=== PATIENT | male | born 1970 | race African-American/Black ===

== ENCOUNTER 2020-08-24 06:37 | Emergency (ER) | payer OTHER ==
[~2020-08-24] VITALS: Ht 180.3 cm; Wt 174.6 kg
[~2020-08-24 06:37] MED LIST: AMOXICILLIN875 MG PO; CARISOPRODOL 3350 MG PO; DAY TIME COLD-237 ML PO; HYDROCHLOROTHIA25 M1 PO; IBUPROFEN 800800 MG PO; MEDROLDOSEPACK PO; NOHOMEMEDICATIONS; NORCO 5-325 TA1 EACH PO; ONMEL200 MG PO; PERCOCET 5-3251 EACH PO; PROMETHAZINE-C120 ML PO; VENTOLIN HFA 1818 GM INH; ZPAK PO
[2020-08-24] MEDS ORDERED: GLUCOPHAGE1000 MG PO (06:52)
[2020-08-24 07:12] LABS: ABSOLUTE NEUTROPHILS 3.3 thou/uL (1.4-8.2); EOSINOPHILS 2.6 % (0.0-3.0); HEMATOCRIT 40.3 % (42.0-52.0); HEMOGLOBIN 13.3 gm/dL (14.0-18.0); LYMPHOCYTES 25.8 % (24.0-44.0); MCH 26.4 pg (26.0-34.0); MCV 79.9 fL (80.0-100.0); MONOCYTES 10.8 % (1.0-8.0); PLATELET COUNT 213 thou/uL (150-400); POLYS 59.8 % (36.0-66.0); RBC 5.05 mil/uL (4.50-6.00); RDW 14.5 % (10.5-14.5); WBC 5.5 thou/uL (4.0-11.0)
[2020-08-24 07:27] LABS: ANION GAP 6 mmol/L (7-16); BUN 15 mg/dL (7-18); CALCIUM 8.5 mg/dL (8.5-10.1); CHLORIDE 106 mmol/L (98-107); CO2 31 mmol/L (21-32); CREATININE 1.1 mg/dL (0.7-1.3); GLUCOSE 127 mg/dL (74-106); POTASSIUM 3.7 mmol/L (3.5-5.1); SODIUM 143 mmol/L (136-145)
[2020-08-24 07:35] LABS: ALBUMIN 3.5 g/dL (3.4-5.0); AMYLASE 41 U/L (25-115); DIRECT BILIRUBIN 0.1 mg/dL (<0.1-0.2); LIPASE 87 U/L (73-393); PHOSPHORUS 3.3 mg/dL (2.6-4.7); SGOT 23 U/L (15-37); SGPT 24 U/L (16-63); TOTAL BILIRUBIN 0.7 mg/dL (0.2-1.0); TOTAL PROTEIN 7.1 g/dL (6.4-8.2); TROPONIN-I <0.06 ng/mL (<0.06)
[2020-08-24] MEDS ORDERED: METHOCARBAMOL500 M2 PO (07:58)
[2020-08-24] MEDS ORDERED: NAPROSYN500 MG PO (07:58)
[2020-08-24 08:55] VITALS: BP 149/92
--- NOTE | 2020-08-24 11:16 | EKG ---
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: [email or web address] : 1970 Requested By: Sudeep Prescott Order Number: [id number] MD: Yuan Brown Measurements Intervals [place] Rate: 77 P: 44 NV: 182 QRS: 8 QRSD: 117 T: 51 QT: 396 QTc: 449 Interpretive Statements Sinus rhythm Incomplete RBBB and LAFB Poor R wave progression Compared to ECG 07/19/2013 00:09:52 [place] has shifted leftward Electronically Signed On 08-24-2020 11:15:53 CDT by Yuan Brown [email or web address] <ELECTRONICALLY SIGNED> By: Yuan Brown MD, [facility] 08/24/20 1115 [id number] 2 Yuan Brown MD, FACC /EPI
== END 2020-08-24 08:55 | disposition home or self-care (01) ==
LOC: ER 06:37
PROVIDERS: Emergency Medicine
DX: S29.011A Strain of muscle and tendon of front wall of thorax, initial encounter (principal); I10 Essential (primary) hypertension; E11.9 Type 2 diabetes mellitus without complications; Z79.899 Other long term (current) drug therapy; X50.1XXA Overexertion from prolonged static or awkward postures, initial encounter; Y93.89 Activity, other specified; Y92.89 Other specified places as the place of occurrence of the external cause; Y99.8 Other external cause status

== ENCOUNTER 2021-05-11 14:49 | Emergency (ER) | payer OTHER ==
[~2021-05-11] VITALS: Ht 180.3 cm; Wt 142.9 kg
[~2021-05-11 14:49] MED LIST changes: +GLUCOPHAGE1000 MG PO; +METHOCARBAMOL500 M2 PO; +NAPROSYN500 MG PO
[2021-05-11 14:50] VITALS: BP 131/83
[2021-05-11] MEDS ORDERED: PROAIR HFA8.5 GM INH (15:30)
--- NOTE | 2021-05-12 07:39 | EKG ---
[address] [place] [address] ELECTROCARDIOGRAM REPORT Name: TRISTAN SPRAGUE [facility] #: [facility]Get[facility] [id number] Admission: 05/11/21 Attend Phys: Discharge: 05/11/21 Date of : [birth year] Report #: [id number] [facility] ED Test Date: 2021-05-11 Test Time: 15:05:24 Pat Name: TRISTAN SPRAGUE Department: Room: Gender: M Decorator Hand: AVELINA MCDONNELL : 1970 Requested By: Pierce Jacques Order Number: [id number] MD: Tan Rios Measurements Intervals [place] Rate: 98 P: 10 IA: 166 QRS: -11 QRSD: 106 T: 50 QT: 357 QTc: 456 Interpretive Statements Sinus rhythm Anterior infarct, old Baseline wander in lead(s) II,aVR,aVF,V2 Compared to ECG 08/24/2020 06:43:16 Myocardial infarct finding now present Left anterior fascicular block no longer present Incomplete right bundle-branch block no longer present Right bundle-branch block no longer present Poor R-wave progression no longer present Electronically Signed On 05-12-2021 7:39:22 PE MANAGER by Tan Rios [email or web address] <ELECTRONICALLY SIGNED> By: Tan Rios MD, FACC 05/12/21 0739 [id number] Tan Rios MD, [facility] /EPI
== END 2021-05-11 15:43 | disposition home or self-care (01) ==
LOC: ER 14:49
DX: U07.1 COVID-19 (principal); E11.9 Type 2 diabetes mellitus without complications; I10 Essential (primary) hypertension; Z79.84 Long term (current) use of oral hypoglycemic drugs